=== PATIENT | male | born 1950 | race African-American/Black ===

== ENCOUNTER 2016-12-29 06:39 | Day surgery (SDC) | payer OTHER ==
[2016-12-29] VITALS (8 sets, daily range): BP systolic 130–164; BP diastolic 56–72; PULSE 65–69; RESP 16–20; TEMP 98–98.3; O2SAT 92–98
[~2016-12-29] VITALS: Ht 175.3 cm; Wt 107.0 kg
[2016-12-29] MEDS ORDERED: ASPI1TAB69 PO (07:04)
[2016-12-29] MEDS ORDERED: FERR1TAB36 PO (07:05)
[2016-12-29] MEDS ORDERED: MULT-65 PO (07:06)
[2016-12-29] MEDS ORDERED: CALC0.5C6 PO (07:06)
[2016-12-29] MEDS ORDERED: ALBI1INJ2 SQ (07:09)
[2016-12-29] MEDS ORDERED: ASPI325T PO (07:10)
[2016-12-29] MEDS ORDERED: LOSA100T PO (07:10)
[2016-12-29] MEDS ORDERED: LOVA20TA PO (07:11)
[2016-12-29] MEDS ORDERED: METO100T PO (07:11)
[2016-12-29] MEDS ORDERED: GLIP10TA6 PO (07:12)
[2016-12-29] MEDS ORDERED: CIAL20TA PO (07:12)
[2016-12-29] MEDS ORDERED: SODIUM BICARB 8.4% (PED) INJ 10 MEQ/10 ML SYR ONE (07:46)
[2016-12-29] MEDS ORDERED: LIDOCAINE 1%/EPINEPHrine 1:100,000 SOLN 20 ML VIAL ONE (07:46)
[2016-12-29] MEDS ORDERED: GELATIN 12 MM/7 MM FOAM ONE (08:00)
[2016-12-29] MEDS ORDERED: MIDAZOLAM HCL 5 MG/5 ML VIAL ONE (08:01)
[2016-12-29] MEDS ORDERED: fentaNYL CITRATE 250 MCG/5 ML AMP ONE (08:01)
[2016-12-29] MEDS ORDERED: THROMBIN (TOPICAL) 5,000 UNIT VIAL ONE (08:02)
[2016-12-29 10:23] LABS: AUTOMATED NEUTROPHIL # 4.4 TH/MM3 (1.8-7.7); BASOPHIL % 0.7 % (0.0-2.0); EOSINOPHIL # 0.2 TH/MM3 (0-0.4); EOSINOPHIL % 3.6 % (0.0-4.0); HEMATOCRIT 25.2 % (39.0-51.0); HEMO FLAGS DIFF FINAL; LYMPH % 14.2 % (9.0-44.0); LYMPHOCYTE # 0.9 TH/MM3 (1.0-4.8); MEAN CELL VOLUME 87.4 FL (80.0-100.0); MEAN CORPUSCULAR HEMOGLOBIN 27.7 PG (27.0-34.0); MEAN CORPUSCULAR HGB CONC 31.7 % (32.0-36.0); MONO % 14.5 % (0.0-8.0); PLATELET COUNT 199 TH/MM3 (150-450); RED BLOOD COUNT 2.88 MIL/MM3 (4.50-5.90); RED CELL DISTRIBUTION WIDTH 13.9 % (11.6-17.2); WHITE BLOOD COUNT 6.6 TH/MM3 (4.0-11.0)
[2016-12-29 12:40] LABS: AUTOMATED NEUTROPHIL # 4.3 TH/MM3 (1.8-7.7); BASOPHIL % 0.7 % (0.0-2.0); EOSINOPHIL # 0.3 TH/MM3 (0-0.4); EOSINOPHIL % 4.6 % (0.0-4.0); HEMATOCRIT 23.6 % (39.0-51.0); HEMO FLAGS DIFF FINAL; LYMPH % 14.9 % (9.0-44.0); LYMPHOCYTE # 0.9 TH/MM3 (1.0-4.8); MEAN CELL VOLUME 85.9 FL (80.0-100.0); MEAN CORPUSCULAR HEMOGLOBIN 28.6 PG (27.0-34.0); MEAN CORPUSCULAR HGB CONC 33.3 % (32.0-36.0); MONO % 10.4 % (0.0-8.0); NEUT % 69.4 % (16.0-70.0); PLATELET COUNT 194 TH/MM3 (150-450); RED BLOOD COUNT 2.75 MIL/MM3 (4.50-5.90); RED CELL DISTRIBUTION WIDTH 13.5 % (11.6-17.2); WHITE BLOOD COUNT 6.2 TH/MM3 (4.0-11.0)
--- NOTE | 2016-12-29 16:37 | RADRPT ---
EXAM DATE/TIME: 12/29/2016 08:09 [facility] COMPARISON: No previous studies available for comparison. INDICATIONS : Chronic kidney disease. SEDATION TIME: 15 minutes BIOPSY SITE: Right flank MEDICATION(S): 1.) 2 mg midazolam (Versed) IV 2.) 100 mcg fentanyl (Sublimaze) IV DEVICE(S): 1.) 16 gauge Patel blunt needle 10cm 2.) 18 gauge Temno core biopsy needle 15cm MEDICAL HISTORY : Hypertension. Diabetes, proteinuria, chronic kidney disease SURGICAL HISTORY : None. ENCOUNTER: Initial ACUITY: 1 day PAIN SCORE: 0/10 LOCATION: Right flank A total of one core specimen(s) were obtained and sent to the laboratory for pathologic evaluation. PROCEDURE: 1. CT guided renal biopsy. 2. Conscious sedation with continuous EKG and oximetry monitoring. Prior to the procedure informed consent was obtained. Any appropriate prior imaging studies were rev iewed. Using automated exposure control and adjustment of the mA and/or kV according to patient size, radiat ion dose was kept as low as reasonably achievable to obtain optimal diagnostic quality images. The site was prepped in a sterile fashion. Full sterile technique was used, including cap, mask, hayder rile gloves and gown and a large sterile sheet. Hand hygiene and 2% chlorhexidine and/or betadine/al cohol prep was utilized per protocol for cutaneous antisepsis. The skin and subcutaneous tissues wer e infiltrated with local anesthetic solution. With CT guidance the previously identified target was localized. Biopsy was performed using the presc ribed needle as above. Adequate hemostasis was obtained with compression at the puncture site. The track was embolized with Gelfoam and thrombin. Follow-up CT scan reveals no hemorrhage. The patient tolerated the procedure well and there were no complications. The patient was returned to the Radiology Outpatient Unit in stable condition. CONCLUSION: Uncomplicated CT guided biopsy. Hernando Bingham MD FACR on December 29, 2016 at 14:17 Board Certified Radiologist. This report was verified electronically.
== END 2016-12-29 14:30 | disposition home or self-care (01) ==
LOC: HRAD 06:39 → HRIP 06:40 → HRAD 14:30
PROVIDERS: ATTEND Internal Medicine Nephrology
DX: I12.9 Hypertensive chronic kidney disease with stage 1 through stage 4 chronic kidney disease, or unspecified chronic kidney disease (principal); N26.9 Renal sclerosis, unspecified; N18.9 Chronic kidney disease, unspecified; E11.22 Type 2 diabetes mellitus with diabetic chronic kidney disease; D64.9 Anemia, unspecified
CPT/HCPCS: 50200; 77012; 85025; J2250; J3010

== ENCOUNTER 2017-03-02 10:32 | Inpatient (IN) | payer OTHER ==
[~2017-03-02] VITALS: Ht 175.3 cm; Wt 104.9 kg
[2017-03-02] VITALS (8 sets, daily range): BP systolic 148–225; BP diastolic 67–95; PULSE 64–76; RESP 16–20; TEMP 97.5–98.6; O2SAT 97–100
[~2017-03-02 10:32] MED LIST: ALBI1INJ2 SQ; ASPI1TAB69 PO; ASPI325T PO; CALC0.5C6 PO; CIAL20TA PO; FERR1TAB36 PO; GLIP10TA6 PO; LOSA100T PO; LOVA20TA PO; METO100T PO; MULT-65 PO
--- NOTE | 2017-03-02 10:43 | PD ---
HPI Chief Complaint: Abnormal Results Time Seen by Provider: 10:42 Travel History International Travel<30 days: No Contact w/Intl Traveler<30days: No Traveled to known affect area: No History of Present Illness HPI 66-year-old male came to the emergency room with history of abnormal blood test that was ordered by his house coordinator Dr. Jaime. Concern was his hemoglobin which was 6.8. Patient sees the house coordinator for chronic renal failure. He had ordered the blood test. Patient says he does have history of anemia and takes iron but has never received blood transfusion. Denies any GI bleeding history. He says he has been feeling little weaker than usual but nothing out of the ordinary. Patient is not a dialysis patient. Patient was hypertensive upon arrival. [facility] Past Medical History Narrative Medical List of his past medical, surgical, social and family history reviewed from the nursing note. Cancer: No Cardiovascular Problems: Yes Diabetes: Yes Endocrine: Yes Hepatitis: No Hiatal Hernia: No Immune Disorder: No Musculoskeletal: No Neurologic: No Psychiatric: No Reproductive: No Respiratory: No Immunizations Current: Yes Thyroid Disease: No Past Surgical History Abdominal Surgery: Yes (gall blader removed ombilical hernia repair) AICD: No Cardiac Surgery: No Ear Surgery: No Endocrine Surgery: No Eye Surgery: No Genitourinary Surgery: No Joint Replacement: No Oral Surgery: No Pacemaker: No Thoracic Surgery: No Social History Tobacco Use: No Substance Use: No Allergies-Medications (Allergen,Severity, Reaction): Coded Allergies: No Known Allergies (Verified , 03/02/17) Comments No known drug allergies. Reported Meds & Prescriptions Reported Meds & Active Scripts Active Reported Vitamin C (Ascorbic Acid) 250 Mg Tab 500 Mg PO DAILY Nifedipine ER 24 HR (Nifedipine) 30 Mg Tab 30 Mg PO DAILY Vitamin E (Vitamin E Acetate) 400 Unit Capsule 1 Tab PO DAILY Tanzeum 4-Pack Inj (Albiglutide) 50 Mg Pfpen 50 Mg SQ Q7D Cyclosporine 25 Mg Cap Unknown Dose PO BID Prednisone 20 Mg Tab 20 Mg PO BID Aspirin Children's (Aspirin) 81 Mg Chew 81 Mg CHEW DAILY Feosol (Ferrous Sulfate) 200 Mg Tab 325 Mg PO DAILY Glipizide 10 Mg Tab 10 Mg PO BIDAC Take 30 minutes before a meal Cialis (Tadalafil) 20 Mg Tab 20 Mg PO DAILY PRN Do not exceed 1 dose/day. Lovastatin 20 Mg Tab 20 Mg PO DAILY Metoprolol Tartrate 100 Mg Tab 100 Mg PO DAILY Losartan (Losartan Potassium) 100 Mg Tab 100 Mg PO DAILY Tanzeum 4-Pack Inj (Albiglutide) 50 Mg Pfpen 50 Mg SQ Q7D Calcitriol 0.5 Mcg Cap 0.5 Mcg PO DAILY Multi-Vitamin Daily (Multiple Vitamin) 1 Tab Tab 1 Tab PO DAILY Narrative Medication List of his home medications reviewed from the nursing note. Review of Systems Except as stated in HPI: all other systems reviewed are Neg Physical Exam Narrative GENERAL: Awake, alert, obese, no obvious distress SKIN: Focused skin assessment warm/dry. Pale HEAD: Atraumatic. Normocephalic. EYES: Pupils equal and round. No scleral icterus. No injection or drainage. Pallor ENT: No nasal bleeding or discharge. Mucous membranes pink and moist. NECK: Trachea midline. No JVD. CARDIOVASCULAR: Regular rate and rhythm. No murmur appreciated. RESPIRATORY: No accessory muscle use. Clear to auscultation. Breath sounds equal bilaterally. GASTROINTESTINAL: Abdomen soft, non-tender, nondistended. Hepatic and splenic margins not palpable. MUSCULOSKELETAL: No obvious deformities. No clubbing. No cyanosis. No edema. NEUROLOGICAL: Awake and alert. No obvious cranial nerve deficits. Motor grossly within normal limits. Normal speech. PSYCHIATRIC: Appropriate mood and affect; insight and judgment normal. Data Data Last Documented VS Vital Signs Date Time Temp Pulse Resp B/P Pulse Ox O2 Delivery O2 Flow Rate FiO2 03/02/17 12:20 68 17 180/85 98 Room Air 03/02/17 10:34 98.6 Orders Complete Blood Count With Diff (03/02/17 10:36) Basic Metabolic Panel (Bmp) (03/02/17 10:36) Type And Screen (03/02/17 10:36) Prothrombin Time / Inr (Pt) (03/02/17 10:51) Red Blood Cells (Rbc) (03/02/17 11:54) Blood Product Administration .UPON TRANSFUSION (03/02/17 11:54) Sodium Chlor 0.9% 250 Ml Inj (Ns 250 Ml (03/02/17 12:00) Consult Nephrology (03/02/17 ) Clonidine (Catapres) (03/02/17 12:30) Admit Order (Ed Use Only) (03/02/17 12:30) Labs Laboratory Tests Test 03/02/17 03/02/17 10:55 11:54 White Blood Count 14.4 TH/MM3 Red Blood Count 2.54 MIL/MM3 Hemoglobin 7.0 GM/DL Hematocrit 22.9 % Mean Corpuscular Volume 90.2 FL Mean Corpuscular Hemoglobin 27.8 PG Mean Corpuscular Hemoglobin 30.8 % Concent Red Cell Distribution Width 15.2 % Platelet Count 225 TH/MM3 Mean Platelet Volume 7.6 FL Neutrophils (%) (Auto) 90.0 % Lymphocytes (%) (Auto) 4.1 % Monocytes (%) (Auto) 5.8 % Eosinophils (%) (Auto) 0.0 % Basophils (%) (Auto) 0.1 % Neutrophils # (Auto) 12.9 TH/MM3 Lymphocytes # (Auto) 0.6 TH/MM3 Monocytes # (Auto) 0.8 TH/MM3 Eosinophils # (Auto) 0.0 TH/MM3 Basophils # (Auto) 0.0 TH/MM3 CBC Comment DIFF FINAL Differential Comment Prothrombin Time 10.5 SEC Prothromb Time International 1.0 RATIO Ratio Sodium Level 141 MEQ/L Potassium Level 5.1 MEQ/L Chloride Level 112 MEQ/L Carbon Dioxide Level 19.3 MEQ/L Anion Gap 10 MEQ/L Blood Urea Nitrogen 49 MG/DL Creatinine 4.15 MG/DL Estimat Glomerular Filtration 18 ML/MIN Rate Random Glucose 156 MG/DL Calcium Level 8.6 MG/DL Blood Type A POSITIVE Antibody Screen NEGATIVE Blood Bank Comment Crossmatch Leukocyte-Reduced Red Blood Cells MDM Medical Decision Making Medical Screen Exam Complete: Yes Emergency Medical Condition: Yes Medical Record Reviewed: Yes Differential Diagnosis Acute renal failure, symptomatic anemia, anemia of chronic kidney disease Narrative Course 12:22 PM blood test results are back and hemoglobin is indeed low. I've ordered 2 units of PRBC transfusion. Patient's renal function has worsened since the last one. I discussed the case with Dr. Jaime. He wants the patient to be admitted to Dr. Burns under the medical service and he will consult on the patient. Awaiting for the hospitalist to call back. I have ordered by mouth clonidine for this patient's blood pressure. Current blood pressure was 180 systolic. Critical Care Narrative Aggregate critical care time was 30 minutes. Time to perform other separately billable procedures was not included in the critical care time. My time did not include minutes spent treating any other patients simultaneously or on activities that did not directly contribute to the patient's treatment. The services I provided to this patient were to treat and/or prevent clinically significant deterioration that could result in: Acute renal failure, symptomatically anemia, blood transfusion I provided critical care services requiring my management, as noted below: Chart data review, documentation time, medication orders and management, vital sign assessments/reviewing monitor data, ordering and reviewing lab tests, ordering and interpreting/reviewing x-rays and diagnostic studies, care of the patient and discussion of the patient with the admitting physicians. Procedures EKG Prior to Arrival: No Physician Communication Physician Communication Dr. Jaime Diagnosis Primary Impression: Renal failure Qualified Code: N17.9 - Acute renal failure superimposed on stage 5 chronic kidney disease, not on chronic dialysis, unspecified acute renal failure type Additional Impressions: Symptomatic anemia Hypertension Qualified Code: I10 - Hypertension, unspecified type Admitting Information Admitting Physician Requests: it Dexter Honeycutt MD Mar 02, 2017 10:42
[2017-03-02] MEDS ORDERED: ASPI81CH7 CHEW (10:45)
[2017-03-02] MEDS ORDERED: FERR200T PO (10:45)
[2017-03-02 11:10] LABS: AUTOMATED NEUTROPHIL # 12.9 TH/MM3 (1.8-7.7); BASOPHIL % 0.1 % (0.0-2.0); HEMATOCRIT 22.9 % (39.0-51.0); HEMO FLAGS DIFF FINAL; LYMPH % 4.1 % (9.0-44.0); LYMPHOCYTE # 0.6 TH/MM3 (1.0-4.8); MEAN CELL VOLUME 90.2 FL (80.0-100.0); MEAN CORPUSCULAR HEMOGLOBIN 27.8 PG (27.0-34.0); MEAN CORPUSCULAR HGB CONC 30.8 % (32.0-36.0); MONO % 5.8 % (0.0-8.0); PLATELET COUNT 225 TH/MM3 (150-450); RED BLOOD COUNT 2.54 MIL/MM3 (4.50-5.90); RED CELL DISTRIBUTION WIDTH 15.2 % (11.6-17.2); WHITE BLOOD COUNT 14.4 TH/MM3 (4.0-11.0)
[2017-03-02 11:26] LABS: PROTHROMBIN TIME - PATIENT 10.5 SEC (9.8-11.6)
[2017-03-02 11:35] LABS: BICARBONATE 19.3 MEQ/L (21.0-32.0); POTASSIUM 5.1 MEQ/L (3.5-5.1)
[2017-03-02] MEDS ORDERED: SODIUM CHLOR 0.9% 250 ML INJ 250 ML IV ONE (12:00)
[2017-03-02] MEDS ORDERED: cloNIDine HCL 0.1 MG TAB PO ONE (12:30)
[2017-03-02] MEDS ORDERED: ACETAMINOPHEN 325 MG TAB PO PRN (13:00)
[2017-03-02] MEDS ORDERED: ONDANSETRON HCL 4 MG/2 ML VIAL IVP PRN (13:00)
[2017-03-02] MEDS ORDERED: SODIUM CHLORIDE 0.9% FLUSH 10 ML FLUSH IV FLUSH PRN (13:00)
[2017-03-02] MEDS ORDERED: NALOXONE HCL 0.4 MG/ML AMP IV PRN (13:00)
[2017-03-02] MEDS ORDERED: ENALAPRILAT 1.25 MG/ML VIAL IV PRN (13:00)
[2017-03-02] MEDS ORDERED: BISACODYL 10 MG SUPP RECTAL PRN (13:00)
[2017-03-02] MEDS ORDERED: GLUCAGON 1 MG/ML VIAL OTHER PRN (13:30)
[2017-03-02] MEDS ORDERED: DEXTROSE 50% IN WATER 50 ML VIAL(D50) IV PUSH PRN (13:30)
--- NOTE | 2017-03-02 13:35 | RADRPT ---
EXAM DATE/TIME: 03/02/2017 12:57 [facility] COMPARISON: No previous studies available for comparison. INDICATIONS : Short of breath, high blood pressure. MEDICAL HISTORY : Renal insufficiency. Hypertension SURGICAL HISTORY : None. ENCOUNTER: Initial ACUITY: 3 days PAIN SCORE: 0/10 LOCATION: Bilateral chest FINDINGS: A single view of the chest demonstrates the lungs to be symmetrically aerated without evidence of mas s, infiltrate or effusion. The cardiomediastinal contours are unremarkable. Osseous structures are intact. CONCLUSION: No acute disease. Rick Pinto MD on March 02, 2017 at 13:33 Board Certified Radiologist. This report was verified electronically.
[2017-03-02] MEDS ORDERED: PRED20 PO (14:05)
[2017-03-02] MEDS ORDERED: VITA-136 PO (14:05)
[2017-03-02] MEDS ORDERED: CYCL25CA4 PO (14:05)
[2017-03-02] MEDS ORDERED: ALBI1INJ2 SQ (14:05)
[2017-03-02] MEDS ORDERED: NIFE30TA61 PO (14:06)
[2017-03-02] MEDS ORDERED: VITA250T3 PO (14:06)
[2017-03-02] MEDS: INSULIN ASPART SUPPLEMENTAL SCALE SQ SCH ×2 (16:00→21:43)
[2017-03-02] MEDS ORDERED: EPOETIN ALFA 20,000 UNITS/ML VIAL SQ ONE (18:00)
--- NOTE | 2017-03-02 21:33 | HHI.HP ---
HPI Service [facility] Hospitalists Primary Care Physician Jose Stark MD Admission Diagnosis acute renal failure, symptomatic anemia Chief Complaint: sent by nephrology for low hemoglobin increase creatine Travel History International Travel<30 Days: No Contact w/Intl Traveler <30 Da: No Traveled to Known Affected Are: No History of Present Illness 66-year-old male came to the emergency room with history of abnormal blood test that was ordered by his director of student services Dr. Jaime. Concern was his hemoglobin which was 6.8. Patient sees the director of student services for chronic renal failure. He had ordered the blood test. Patient says he does have history of anemia and takes iron but has never received blood transfusion. Denies any GI bleeding history. He says he has been feeling little weaker than usual but nothing out of the ordinary. Patient is not a dialysis patient. Patient was hypertensive upon arrival. Received BP medication and will receive blood transfusion. Nephrology aware. Review of Systems Constitutional: COMPLAINS OF: Fatigue Past Family Social History Past Medical History chronic renal failure,hypertension,diabetes Past Surgical History gallbladder,umbilical surgery Reported Medications Aspirin Children's (Aspirin) 81 Mg Chew 81 Mg CHEW DAILY Feosol (Ferrous Sulfate) 200 Mg Tab 325 Mg PO DAILY Glipizide 10 Mg Tab 10 Mg PO BIDAC Take 30 minutes before a meal Cialis (Tadalafil) 20 Mg Tab 20 Mg PO DAILY PRN Do not exceed 1 dose/day. Lovastatin 20 Mg Tab 20 Mg PO DAILY Metoprolol Tartrate 100 Mg Tab 100 Mg PO DAILY Losartan (Losartan Potassium) 100 Mg Tab 100 Mg PO DAILY Tanzeum 4-Pack Inj (Albiglutide) 50 Mg Pfpen 50 Mg SQ Q7D Calcitriol 0.5 Mcg Cap 0.5 Mcg PO DAILY Multi-Vitamin Daily (Multiple Vitamin) 1 Tab Tab 1 Tab PO DAILY Allergies: Coded Allergies: No Known Allergies (Verified , 03/02/17) Social History NS,ND Physical Exam Vital Signs Vital Signs Date Time Temp Pulse Resp B/P Pulse Ox O2 Delivery O2 Flow Rate FiO2 03/02/17 20:00 98.3 74 20 169/74 98 03/02/17 16:30 97.5 76 18 168/77 98 03/02/17 15:54 97.5 67 18 161/70 97 03/02/17 15:00 98.0 64 18 148/67 97 03/02/17 13:00 76 16 180/78 98 Room Air 03/02/17 12:50 78 16 98 Room Air 03/02/17 12:40 76 17 158/72 98 Room Air 03/02/17 12:20 68 17 180/85 98 Room Air 03/02/17 10:34 98.6 70 20 225/95 100 Room Air Physical Exam GENERAL: This is a well-nourished, well-developed patient, in no apparent distress. SKIN: No rashes, ecchymoses or lesions. Cool and dry. HEAD: Atraumatic. Normocephalic. No temporal or scalp tenderness. EYES: Pupils equal round and reactive. Extraocular motions intact. No scleral icterus. No injection or drainage. ENT: Nose without bleeding, purulent drainage or septal hematoma. Throat without erythema, tonsillar hypertrophy or exudate. Uvula midline. Airway patent. NECK: Trachea midline. No JVD or lymphadenopathy. Supple, nontender, no meningeal signs. CARDIOVASCULAR: Regular rate and rhythm without murmurs, gallops, or rubs. RESPIRATORY: Clear to auscultation. Breath sounds equal bilaterally. No wheezes , rales, or rhonchi. GASTROINTESTINAL: Abdomen soft, non-tender, nondistended. No hepato-splenomegaly , or palpable masses. No guarding. MUSCULOSKELETAL: Extremities without clubbing, cyanosis, or edema. No joint tenderness, effusion, or edema noted. No calf tenderness. Negative Homans sign bilaterally. NEUROLOGICAL: Awake and alert. Cranial nerves II through XII intact. Motor and sensory grossly within normal limits. Five out of 5 muscle strength in all muscle groups. Normal speech. Laboratory Laboratory Tests Test 03/02/17 03/02/17 03/02/17 10:55 11:54 13:24 White Blood Count 14.4 Red Blood Count 2.54 Hemoglobin 7.0 Hematocrit 22.9 Mean Corpuscular Volume 90.2 Mean Corpuscular Hemoglobin 27.8 Mean Corpuscular Hemoglobin 30.8 Concent Red Cell Distribution Width 15.2 Platelet Count 225 Mean Platelet Volume 7.6 Neutrophils (%) (Auto) 90.0 Lymphocytes (%) (Auto) 4.1 Monocytes (%) (Auto) 5.8 Eosinophils (%) (Auto) 0.0 Basophils (%) (Auto) 0.1 Neutrophils # (Auto) 12.9 Lymphocytes # (Auto) 0.6 Monocytes # (Auto) 0.8 Eosinophils # (Auto) 0.0 Basophils # (Auto) 0.0 CBC Comment DIFF FINAL Differential Comment Prothrombin Time 10.5 Prothromb Time International 1.0 Ratio Sodium Level 141 Potassium Level 5.1 Chloride Level 112 Carbon Dioxide Level 19.3 Anion Gap 10 Blood Urea Nitrogen 49 Creatinine 4.15 Estimat Glomerular Filtration 18 Rate Random Glucose 156 Calcium Level 8.6 Blood Type A POSITIVE A POSITIVE Antibody Screen NEGATIVE Blood Bank Comment Crossmatch Leukocyte-Reduced Red Blood Cells Result Diagram: 03/02/17 1055 03/02/17 1055 Imaging Last 24 hours Impressions Chest X-Ray 03/02/17 1248 Signed Impressions: Service Date/Time: Thursday, March 02, 2017 12:57 - CONCLUSION: No acute disease. Rick Pinto MD Assessment and Plan Problem List: (1) Renal failure Status: Acute Plan: renal consult recheck labs (2) Symptomatic anemia Status: Acute Plan: will receive blood transfusion (3) Hypertension Status: Chronic Plan: continue home meds add clonidine prn Assessment and Plan further plan as case develops Code Status full Discussed Condition With patient Physician Certification 2 Midnight Certification Type: Admission for Inpatient Services Order for Inpatient Services The services are ordered in accordance with Medicare regulations or non- Medicare payer requirements, as applicable. In the case of services not specified as inpatient-only, they are appropriately provided as inpatient services in accordance with the 2-midnight benchmark. Estimated LOS (days): 3 3 days is the estimated time the patient will need to remain in the hospital, assuming treatment plan goals are met and no additional complications. Post-Hospital Plan: Not yet determined Problem Qualifiers (1) Renal failure: Qualified Code: N17.9 - Acute renal failure superimposed on stage 5 chronic kidney disease, not on chronic dialysis, unspecified acute renal failure type (2) Hypertension: Qualified Code: I10 - Hypertension, unspecified type Jose Stark MD Mar 02, 2017 21:33
[2017-03-02] MEDS: cycloSPORINE 25 MG CAP PO SCH (21:40)
--- NOTE | 2017-03-02 21:40 | MB ---
cc: TALIA BARRETT MD DATE OF CONSULTATION 03/02/2017 REASON FOR CONSULTATION Chronic kidney disease and advanced renal failure for evaluation. HISTORY OF PRESENT ILLNESS This is a 66-year-old male with past medical history of hypertension, diabetes mellitus, chronic anemia, chronic kidney disease, hyperlipidemia who was called to go to the hospital because of very low hemoglobin and hyperkalemia. I was called to see the patient for chronic kidney disease. I saw him yesterday in the office and the blood results showing that he has hemoglobin was 6.8 and the potassium was 6.1 and I asked him to go to the emergency department and he decided to come today. 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 The patient was started on prednisone and cyclosporin. So far there is not much improvement in the renal function and the creatinine has gone up to 4.1, it was 3.3 and the creatinine has been going up relatively faster and that was the reason that the kidney biopsy was done. The patient was also sent to the kidney smart class where he decided that he will go for peritoneal dialysis when needed. He does not have any nausea or vomiting. His appetite is good. There is no abdominal pain, no shortness of breath. PAST MEDICAL HISTORY 1. Hypertension. 2. Diabetes mellitus. 3. Chronic anemia. 4. Chronic kidney disease. 5. Hyperlipidemia. PAST SURGICAL HISTORY 1. Cholecystectomy. 2. Umbilical hernia repair. 3. Recent history of renal biopsy. REVIEW OF SYSTEMS There is no history of headache, dizziness or blurring of vision. He has generalized weakness. There is no nausea or vomiting. No shortness of breath. No chest pain. No palpitation. No abdominal pain. No history of diarrhea. Denies any melena or blood loss in the stool. There is no dysuria, hematuria or difficulty in passing urine. SOCIAL HISTORY The patient is . He is a retired secretary of police. There is no history of smoking or alcoholism. FAMILY HISTORY Positive for diabetes from mother's side. ALLERGIES NO KNOWN DRUG ALLERGIES. MEDICATIONS Currently he is on following medications: 1. Aspirin 81 mg daily. 2. Rocaltrol 0.5 mcg once a day. 3. Ferrous sulfate 325 mg daily. 4. Cozaar 100 mg once a day. 5. Pravachol 20 mg daily. 6. Lopressor 100 mg once a day. 7. Theragran 1 tablet daily. 8. NovoLog sliding scale. 9. Zofran as needed. 10. Narcan as needed. EXAMINATION GENERAL: The patient is awake, alert. He is not in acute distress. VITAL SIGNS: His last blood pressure is 168/77, temperature 97.5, oxygen saturation 97-98%. HEENT: Pupils equally reacting to light. Nonicteric sclera, conjunctiva pale. NECK: Supple. JVD is not elevated. LUNGS: The patient has bilateral good air entry with occasional wheezing. HEART: S1-S2, regular rhythm. ABDOMEN: Distended, soft, lax. There is no tenderness. Bowel sounds positive. EXTREMITIES: There is mild edema in the legs. LABORATORY DATA Investigations, WBC count is 14.4, hemoglobin 7.0, platelet count of 225. Sodium 141, potassium 5.1, chloride 112, bicarb 19.3, BUN 49, creatinine 4.1, GFR is 18, glucose 156. INR is 1.0. IMAGING A chest x-ray showing that lung fan are clear. ASSESSMENT/PLAN 1. Chronic kidney disease, advanced renal failure. 2. Anemia. 3. Hyperkalemia. 4. Metabolic acidosis. 5. History of hyperlipidemia. The patient has relatively fast deterioration of his renal function and that was the reason that the kidney biopsy was done in December. His creatinine has gone up now to 4.1. He has focal segmental glomerulosclerosis, also for that reason he was started on cyclosporin and prednisone. So far there is not much improvement in renal function. I will decrease the prednisone and cyclosporin dose also. Continue to follow the renal function closely. Right now he is getting the blood transfusion. There is no apparent blood loss. Most likely this is related to chronic kidney disease. I will check his iron studies and give him one dose of Epogen also. Thank you for the consultation. I will follow the patient while he is in the hospital. MD ROMÁN Aponte/FLORIAN /5:16 PM /9:21 PM
[2017-03-02] MEDS: SODIUM CHLORIDE 0.9% FLUSH 10 ML FLUSH IV FLUSH SCH (21:41)
[2017-03-02] MEDS: predniSONE 10 MG TAB PO SCH (21:41)
[2017-03-02] MEDS: cloNIDine HCL 0.2 MG TAB PO PRN (21:41)
[2017-03-03] VITALS (8 sets, daily range): BP systolic 156–221; BP diastolic 70–93; PULSE 55–74; RESP 18–19; TEMP 97.5–98.2; O2SAT 96–99
[2017-03-03] MEDS: cycloSPORINE 25 MG CAP PO SCH ×2 (05:30→17:04)
[2017-03-03] MEDS: INSULIN ASPART SUPPLEMENTAL SCALE SQ SCH ×4 (06:04→21:31)
[2017-03-03 06:21] LABS: BASOPHIL % 0.2 % (0.0-2.0); EOSINOPHIL % 0.1 % (0.0-4.0); HEMATOCRIT 24.6 % (39.0-51.0); HEMO FLAGS DIFF FINAL; LYMPH % 4.6 % (9.0-44.0); LYMPHOCYTE # 0.5 TH/MM3 (1.0-4.8); MEAN CELL VOLUME 85.6 FL (80.0-100.0); MEAN CORPUSCULAR HEMOGLOBIN 28.4 PG (27.0-34.0); MEAN CORPUSCULAR HGB CONC 33.2 % (32.0-36.0); MONO % 4.5 % (0.0-8.0); NEUT % 90.6 % (16.0-70.0); PLATELET COUNT 194 TH/MM3 (150-450); RED BLOOD COUNT 2.87 MIL/MM3 (4.50-5.90); RED CELL DISTRIBUTION WIDTH 16.9 % (11.6-17.2); WHITE BLOOD COUNT 9.9 TH/MM3 (4.0-11.0)
[2017-03-03 07:07] LABS: ANION GAP 10 MEQ/L (5-15); BICARBONATE 20.5 MEQ/L (21.0-32.0); BLOOD UREA NITROGEN 52 MG/DL (7-18); CHLORIDE 110 MEQ/L (98-107); FERRITIN 51 NG/ML (26-388); GLOMERULAR FILTRATION RATE 20 ML/MIN (>89); SODIUM (NA) 140 MEQ/L (136-145); TRANSFERRIN IRON PROFILE 213 MG/DL (200-360)
[2017-03-03 07:18] LABS: POTASSIUM 6.6 MEQ/L (3.5-5.1)
[2017-03-03] MEDS: CALCITRIOL 0.25 MCG CAP PO SCH (08:45)
[2017-03-03] MEDS: ASPIRIN 81 MG CHEW TAB CHEW SCH (08:45)
[2017-03-03] MEDS: METOPROLOL TARTRATE 100 MG TAB PO SCH (08:45)
[2017-03-03] MEDS: MULTIVITAMIN TAB PO SCH (08:46)
[2017-03-03] MEDS: LOSARTAN 50 MG TAB PO SCH (08:46)
[2017-03-03] MEDS: PRAVASTATIN SOD 20 MG TAB PO SCH (08:46)
[2017-03-03] MEDS: predniSONE 10 MG TAB PO SCH ×2 (08:46→20:39)
[2017-03-03] MEDS: SODIUM CHLORIDE 0.9% FLUSH 10 ML FLUSH IV FLUSH SCH ×2 (08:46→20:40)
[2017-03-03] MEDS: FERROUS SULFATE 325 MG (65 MG ELEMENTAL IRON) TAB PO SCH (08:46)
[2017-03-03] MEDS ORDERED: SODIUM BICARBONATE 8.4% INJ 50 MEQ/50 ML SYR IV ONE (09:00)
[2017-03-03] MEDS ORDERED: SODIUM POLYSTYRENE SULFONATE SUSP 15 GM/60 ML CUP PO ONE ×3 (09:00→11:00)
[2017-03-03] MEDS: cloNIDine HCL 0.2 MG TAB PO PRN (10:29)
[2017-03-03] MEDS ORDERED: LABETALOL HCL 100 MG/20 ML VIAL IV PRN (11:45)
--- NOTE | 2017-03-03 12:49 | HHI.NPPN ---
Subjective History of Present Illness 66-year-old male with past medical history of hypertension, diabetes mellitus, chronic anemia, chronic kidney disease, hyperlipidemia who was called to go to the hospital because of very low hemoglobin and hyperkalemia. I was called to see the patient for chronic kidney disease. Additional Remarks Patient is alert, has loose BM after Kayexalate. Review of Systems General Constitutional: Fatigue Cardiovascular Cardiac: CHASE Objective Data Data 03/02/17 03/03/17 19:00 07:00 Intake Total 720 ml Output Total 1550 ml Balance -830 ml Intake Oral 720 ml Output Urine Total 1550 ml Vital Signs Date Time Temp Pulse Resp B/P Pulse Ox O2 Delivery O2 Flow Rate FiO2 03/03/17 12:00 97.5 69 18 221/93 98 03/03/17 08:00 97.9 67 18 198/86 98 03/03/17 04:00 98.2 56 19 196/77 98 160/80 03/03/17 00:00 98.2 67 19 156/72 96 03/02/17 20:00 98.3 74 20 169/74 98 03/02/17 20:00 75 03/02/17 20:00 98.3 74 20 169/74 98 03/02/17 16:30 97.5 76 18 168/77 98 03/02/17 15:54 97.5 67 18 161/70 97 03/02/17 15:00 98.0 64 18 148/67 97 03/02/17 13:00 76 16 180/78 98 Room Air 03/02/17 12:50 78 16 98 Room Air -: 03/03/17 0531 03/03/17 0531 Physical Exam General Appearance: No Acute Distress, Comfortable Eyes Eye Exam: Pupils Equal Throat Throat Exam: Oral Mucosa [place] & Moist Neck Neck Exam: Neck Supple Pulmonary Resp Exam: Clear Bilaterally, Breath Sounds Equal, No Distress, Decreased Bases Cardiology CV Exam: Regular, Normal Sinus Rhythm Gastrointestinal/Abdomen GI Exam: Soft, Non-Tender, Bowel Sounds Present Extremeties Extremities Exam: Trace Edema Neurologic Neuro Exam: Alert, Awake, Oriented Psychiatric Psych Exam: Appropriate Responses Assessment/Plan Assessment Summary: Anemia of CKD, Hypertension, CKD Stage IV Electrolyte Assessment: Hyperkalemia Problem List: (1) Hypertension (2) Symptomatic anemia (3) Hyperkalemia (4) Stage 4 chronic kidney disease Plan Patient has improvement in the Creatinine. K was elevated, given Kayexalate and NaHco3, told to restrict K in diet. Change diet to low K. Decrease Cyclosporine. Add Hydralazine. Problem Qualifiers (1) Hypertension: Qualified Code: I10 - Hypertension, unspecified type Chuy Jaime MD Mar 03, 2017 12:49
[2017-03-03] MEDS: hydrALAZINE HCL 20 MG/ML VIAL IV PUSH PRN (13:37)
[2017-03-03] MEDS: hydrALAZINE HCL 25 MG TAB PO SCH ×2 (14:25→20:40)
--- NOTE | 2017-03-03 15:03 | HHI.PR ---
Subjective Remarks No new complaints. Objective Vitals Vital Signs Date Time Temp Pulse Resp B/P Pulse Ox O2 Delivery O2 Flow Rate FiO2 03/03/17 14:23 72 177/77 03/03/17 12:00 97.5 69 18 221/93 98 03/03/17 08:00 97.9 67 18 198/86 98 03/03/17 04:00 98.2 56 19 196/77 98 160/80 03/03/17 00:00 98.2 67 19 156/72 96 03/02/17 20:00 98.3 74 20 169/74 98 03/02/17 20:00 75 03/02/17 20:00 98.3 74 20 169/74 98 03/02/17 16:30 97.5 76 18 168/77 98 03/02/17 15:54 97.5 67 18 161/70 97 03/02/17 03/02/17 03/03/17 14:59 22:59 06:59 Intake Total 240 ml 480 ml Output Total 750 ml 800 ml Balance -510 ml -320 ml Intake Oral 240 ml 480 ml Output Urine Total 750 ml 800 ml Result Diagram: 03/03/17 0531 03/03/17 0531 Imaging Last 24 hours Impressions Chest X-Ray 03/02/17 1248 Signed Impressions: Service Date/Time: Thursday, March 02, 2017 12:57 - CONCLUSION: No acute disease. Rick Pinto MD Objective Remarks GENERAL: This is a well-nourished, well-developed patient, in no apparent distress. CARDIOVASCULAR: Regular rate and rhythm without murmurs, gallops, or rubs. RESPIRATORY: Clear to auscultation. Breath sounds equal bilaterally. No wheezes , rales, or rhonchi. GASTROINTESTINAL: Abdomen soft, non-tender, nondistended. Normal active bowel sounds MUSCULOSKELETAL: Extremities without clubbing, cyanosis, or edema. NEURO: Alert & Oriented x4 to person, place, time, situation. Moves all ext x4 A/P Problem List: (1) Renal failure Status: Acute Plan: - comgmt with Nephrology, Dr. Jaime - Case d/w Dr. Jaime (03/04/17) - kidney biopsy showed focal segmental glomerulosclerosis - pt receiving cyclosporin and prednisone with minimal improvement to date - decrease dose adjustments of pt's cyclosporin and prednisone per Nephrology - (2) Hypertension Status: Chronic Plan: - need improved control prior to discharge - increase scheduled hydralazine to 50mg TID - heath myers - trial of cardizem CD 120mg BID - hydralazine prn - observe (3) Symptomatic anemia Status: Acute Plan: - d/t RF - Pt received transfusion of 2 units PRBCs - Hg 7.0 (03/02/17), 8.2 (03/03/17) - Epogen (03/02/17) - repeat CBC in AM Problem Qualifiers (1) Renal failure: Qualified Code: N17.9 - Acute renal failure superimposed on stage 5 chronic kidney disease, not on chronic dialysis, unspecified acute renal failure type (2) Hypertension: Qualified Code: I10 - Hypertension, unspecified type Robson Burns DO Mar 03, 2017 15:03
--- NOTE | 2017-03-03 15:14 | EKG ---
Date Performed: 03/02/2017 Time Performed: 14:22:55 PTAGE: 66 years EKG: Sinus rhythm LEFT VENTRICULAR HYPERTROPHY AND ST-T CHANGE Inverted inferolateral T waves, potentially due to LVH vs ischemia Clinical correlation is recommended ABNORMAL ECG PREVIOUS TRACING : 04/20/2001 22.53 DOCTOR: Salome Brown Interpretating Date/Time 03/03/2017 15:13:12
[2017-03-03] MEDS: DILTIAZEM-CD 120 MG CAP ER PO SCH ×2 (17:02→20:40)
[2017-03-04] VITALS (9 sets, daily range): BP systolic 137–190; BP diastolic 59–78; PULSE 58–72; RESP 18–58; TEMP 97.4–98.2; O2SAT 95–99
[2017-03-04] MEDS: hydrALAZINE HCL 20 MG/ML VIAL IV PUSH PRN ×2 (04:06→12:02)
[2017-03-04] MEDS: cycloSPORINE 25 MG CAP PO SCH ×2 (05:27→17:44)
[2017-03-04] MEDS: hydrALAZINE HCL 25 MG TAB PO SCH ×3 (05:27→21:14)
[2017-03-04] MEDS: INSULIN ASPART SUPPLEMENTAL SCALE SQ SCH ×4 (05:30→21:12)
[2017-03-04] MEDS: predniSONE 10 MG TAB PO SCH ×2 (08:42→21:14)
[2017-03-04] MEDS: PRAVASTATIN SOD 20 MG TAB PO SCH (08:42)
[2017-03-04] MEDS: METOPROLOL TARTRATE 100 MG TAB PO SCH (08:42)
[2017-03-04] MEDS: MULTIVITAMIN TAB PO SCH (08:42)
[2017-03-04] MEDS: SODIUM CHLORIDE 0.9% FLUSH 10 ML FLUSH IV FLUSH SCH ×2 (08:42→21:00)
[2017-03-04] MEDS: DILTIAZEM-CD 120 MG CAP ER PO SCH ×2 (08:42→21:13)
[2017-03-04] MEDS: FERROUS SULFATE 325 MG (65 MG ELEMENTAL IRON) TAB PO SCH (08:42)
[2017-03-04] MEDS: ASPIRIN 81 MG CHEW TAB CHEW SCH (08:42)
[2017-03-04] MEDS: CALCITRIOL 0.25 MCG CAP PO SCH (08:42)
[2017-03-04] MEDS: LOSARTAN 50 MG TAB PO SCH (08:42)
[2017-03-04] MEDS: cloNIDine HCL 0.2 MG TAB PO PRN (10:42)
--- NOTE | 2017-03-04 10:45 | HHI.NPPN ---
Subjective History of Present Illness 66-year-old male with past medical history of hypertension, diabetes mellitus, chronic anemia, chronic kidney disease, hyperlipidemia who was called to go to the hospital because of very low hemoglobin and hyperkalemia. I was called to see the patient for chronic kidney disease. Additional Remarks Patient is alert, no SOB, feeling better. Review of Systems General Constitutional: Fatigue Cardiovascular Cardiac: CHASE Objective Data Data 03/03/17 03/04/17 18:59 06:59 Intake Total 720 ml 724 ml Output Total 200 ml 900 ml Balance 520 ml -176 ml Intake Oral 720 ml 720 ml IV Total 4 ml Output Urine Total 200 ml 900 ml # Bowel Movements 0 Vital Signs Date Time Temp Pulse Resp B/P Pulse Ox O2 Delivery O2 Flow Rate FiO2 03/04/17 04:00 98.2 64 18 190/60 03/04/17 04:00 Room Air 03/04/17 00:00 98.2 72 19 180/60 98 03/04/17 00:00 Room Air 03/03/17 20:19 74 03/03/17 20:00 Room Air 03/03/17 20:00 98.2 71 19 216/88 98 198/80 03/03/17 16:00 97.8 74 18 163/70 99 03/03/17 14:23 72 177/77 03/03/17 12:00 97.5 69 18 221/93 98 -: 03/03/17 0531 03/03/17 1600 Physical Exam General Appearance: No Acute Distress, Comfortable Eyes Eye Exam: Pupils Equal Throat Throat Exam: Oral Mucosa [place] & Moist Neck Neck Exam: Neck Supple Pulmonary Resp Exam: Clear Bilaterally, Breath Sounds Equal, No Distress, Decreased Bases Cardiology CV Exam: Regular, Normal Sinus Rhythm Gastrointestinal/Abdomen GI Exam: Soft, Non-Tender, Bowel Sounds Present Extremeties Extremities Exam: Trace Edema Neurologic Neuro Exam: Alert, Awake, Oriented Psychiatric Psych Exam: Appropriate Responses Assessment/Plan Assessment Summary: Anemia of CKD, Hypertension, CKD Stage IV Electrolyte Assessment: Hyperkalemia Problem List: (1) Hypertension (2) Symptomatic anemia (3) Hyperkalemia (4) Stage 4 chronic kidney disease Plan BP is still elevated off and on. Also started on Diltiazem. Hgb. was stable, got one dose of Epogen. Iron study is normal, and Po4 is also normal. Possible D/C once BP is better. Told to restrict K in diet. Problem Qualifiers (1) Hypertension: Qualified Code: I10 - Hypertension, unspecified type Chuy Jaime MD Mar 04, 2017 10:45
[2017-03-04] MEDS ORDERED: hydrALAZINE HCL 50 MG TAB PO ONE (15:45)
[2017-03-05] VITALS (9 sets, daily range): BP systolic 146–183; BP diastolic 62–78; PULSE 58–80; RESP 16–18; TEMP 97.3–98.1; O2SAT 96–100
[2017-03-05 05:36] LABS: AUTOMATED NEUTROPHIL # 11.1 TH/MM3 (1.8-7.7); BASOPHIL % 0.2 % (0.0-2.0); EOSINOPHIL % 0.3 % (0.0-4.0); HEMATOCRIT 27.7 % (39.0-51.0); LYMPHOCYTE # 0.6 TH/MM3 (1.0-4.8); MEAN CELL VOLUME 87.2 FL (80.0-100.0); MEAN CORPUSCULAR HEMOGLOBIN 27.6 PG (27.0-34.0); MEAN CORPUSCULAR HGB CONC 31.7 % (32.0-36.0); MONO % 6.7 % (0.0-8.0); NEUT % 87.8 % (16.0-70.0); PLATELET COUNT 215 TH/MM3 (150-450); RED BLOOD COUNT 3.17 MIL/MM3 (4.50-5.90); RED CELL DISTRIBUTION WIDTH 16.7 % (11.6-17.2); WHITE BLOOD COUNT 12.6 TH/MM3 (4.0-11.0)
[2017-03-05] MEDS: cycloSPORINE 25 MG CAP PO SCH ×2 (05:44→17:08)
[2017-03-05] MEDS: hydrALAZINE HCL 25 MG TAB PO SCH ×3 (05:44→20:41)
[2017-03-05 05:51] LABS: HEMO FLAGS AUTO DIFF
[2017-03-05] MEDS: INSULIN ASPART SUPPLEMENTAL SCALE SQ SCH ×4 (05:54→20:43)
[2017-03-05 06:11] LABS: BICARBONATE 20.9 MEQ/L (21.0-32.0); MAGNESIUM 2.1 MG/DL (1.5-2.5); POTASSIUM 4.8 MEQ/L (3.5-5.1)
[2017-03-05] MEDS: FERROUS SULFATE 325 MG (65 MG ELEMENTAL IRON) TAB PO SCH (08:08)
[2017-03-05] MEDS: predniSONE 10 MG TAB PO SCH ×2 (08:09→20:41)
[2017-03-05] MEDS: LOSARTAN 50 MG TAB PO SCH (08:09)
[2017-03-05] MEDS: CALCITRIOL 0.25 MCG CAP PO SCH (08:09)
[2017-03-05] MEDS: METOPROLOL TARTRATE 100 MG TAB PO SCH (08:09)
[2017-03-05] MEDS: ASPIRIN 81 MG CHEW TAB CHEW SCH (08:09)
[2017-03-05] MEDS: PRAVASTATIN SOD 20 MG TAB PO SCH (08:09)
[2017-03-05] MEDS: MULTIVITAMIN TAB PO SCH (08:09)
[2017-03-05] MEDS: SODIUM CHLORIDE 0.9% FLUSH 10 ML FLUSH IV FLUSH SCH ×2 (08:09→20:40)
[2017-03-05] MEDS: DILTIAZEM-CD 120 MG CAP ER PO SCH ×2 (08:09→20:41)
[2017-03-05 11:13] LABS: BANDS 3 % (0-6); CORRECTED NUCLEATED RBC 1 /100 WBC (0-0); MYELOCYTES 1 % (0-0); NEUTROPHIL # MANUAL DIFF 11.2 TH/MM3 (1.8-7.7); PLATELET ESTIMATE SMEAR NORMAL (NORMAL); PLATELET MORPHOLOGY NORMAL (NORMAL); POLYCHROMASIA 2.2 % (0.0-1.9); POLYS (SEG NEUTROPHILS) 85 % (16-70); WBC DIFF SAMPLE 100
[2017-03-05 11:14] LABS: SCAN/DIFF FINAL DIFF MANUAL
[2017-03-05] MEDS: hydrALAZINE HCL 20 MG/ML VIAL IV PUSH PRN ×2 (11:38→17:08)
--- NOTE | 2017-03-05 12:37 | HHI.PR ---
Subjective Remarks may be getting depressed. sullen not getting out of bed much. Objective Vitals Vital Signs Date Time Temp Pulse Resp B/P Pulse Ox O2 Delivery O2 Flow Rate FiO2 03/05/17 11:54 80 183/78 03/05/17 08:05 62 03/05/17 04:00 98.1 60 18 164/62 97 03/05/17 00:00 98.1 64 18 160/64 97 03/05/17 00:00 Room Air 03/04/17 20:00 Room Air 03/04/17 20:00 98.1 61 18 172/60 98 03/04/17 19:55 65 03/04/17 16:06 97.6 62 20 151/59 98 03/04/17 03/04/17 03/05/17 14:59 22:59 06:59 Intake Total 480 ml 2 ml Output Total 800 ml 450 ml Balance -320 ml 2 ml -450 ml Intake Oral 480 ml IV Total 2 ml Output Urine Total 800 ml 450 ml # Bowel Movements 0 Result Diagram: 03/05/17 0418 03/05/17 0418 Imaging Last 24 hours Impressions Chest X-Ray 03/02/17 1248 Signed Impressions: Service Date/Time: Thursday, March 02, 2017 12:57 - CONCLUSION: No acute disease. Rick Pinto MD Objective Remarks GENERAL: This is a well-nourished, well-developed patient, in no apparent distress. CARDIOVASCULAR: Regular rate and rhythm without murmurs, gallops, or rubs. RESPIRATORY: Clear to auscultation. Breath sounds equal bilaterally. No wheezes , rales, or rhonchi. GASTROINTESTINAL: Abdomen soft, non-tender, nondistended. Normal active bowel sounds MUSCULOSKELETAL: Extremities without clubbing, cyanosis, or edema. NEURO: Alert & Oriented x4 to person, place, time, situation. Moves all ext x4 A/P Problem List: (1) Renal failure Status: Acute Plan: - comgmt with Nephrology, Dr. Jaime - Case d/w Dr. Jaime (03/05/17) - kidney biopsy showed focal segmental glomerulosclerosis - pt receiving cyclosporin and prednisone with minimal improvement to date - decrease dose adjustments of pt's cyclosporin and prednisone per Nephrology (2) Hypertension Status: Chronic Plan: - need improved control prior to discharge - increased scheduled hydralazine to 50mg TID (increased 03/04/17) - if still NO improvement in BP readings by tomorrow 03/06 then will increase hydralazine to 75mg TID - heath myers - trial of cardizem CD 120mg BID (started 03/03/17) - hydralazine prn - observe (3) Symptomatic anemia Status: Acute Plan: - d/t RF - Pt received transfusion of 2 units PRBCs - Hg 7.0 (03/02/17), 8.2 (03/03/17), 8.8 (03/04/17) - Epogen (03/02/17) - repeat CBC in AM (4) Adjustment disorder Status: Acute Plan: - case d/w nursing - encourage OOB and ambulate in the hallways - may need to start anti-depressant - observe Problem Qualifiers (1) Renal failure: Qualified Code: N17.9 - Acute renal failure superimposed on stage 5 chronic kidney disease, not on chronic dialysis, unspecified acute renal failure type (2) Hypertension: Qualified Code: I10 - Hypertension, unspecified type Robson Burns DO Mar 05, 2017 12:37
--- NOTE | 2017-03-05 14:23 | HHI.NPPN ---
Subjective History of Present Illness 66-year-old male with past medical history of hypertension, diabetes mellitus, chronic anemia, chronic kidney disease, hyperlipidemia who was called to go to the hospital because of very low hemoglobin and hyperkalemia. I was called to see the patient for chronic kidney disease. Additional Remarks Patient is alert, no complain, feeling better. Review of Systems General Constitutional: Fatigue Cardiovascular Cardiac: CHASE Objective Data Data 03/04/17 03/05/17 18:59 06:59 Intake Total 480 ml 2 ml Output Total 800 ml 450 ml Balance -320 ml -448 ml Intake Oral 480 ml IV Total 2 ml Output Urine Total 800 ml 450 ml # Bowel Movements 0 Vital Signs Date Time Temp Pulse Resp B/P Pulse Ox O2 Delivery O2 Flow Rate FiO2 03/05/17 11:54 80 183/78 03/05/17 08:05 62 03/05/17 08:00 97.9 70 18 167/72 99 03/05/17 04:00 98.1 60 18 164/62 97 03/05/17 00:00 98.1 64 18 160/64 97 03/05/17 00:00 Room Air 03/04/17 20:00 Room Air 03/04/17 20:00 98.1 61 18 172/60 98 03/04/17 19:55 65 03/04/17 16:06 97.6 62 20 151/59 98 -: 03/05/17 0418 03/05/17 0418 Physical Exam General Appearance: No Acute Distress, Comfortable Eyes Eye Exam: Pupils Equal Throat Throat Exam: Oral Mucosa [place] & Moist Neck Neck Exam: Neck Supple Pulmonary Resp Exam: Clear Bilaterally, Breath Sounds Equal, No Distress, Decreased Bases Cardiology CV Exam: Regular, Normal Sinus Rhythm Gastrointestinal/Abdomen GI Exam: Soft, Non-Tender, Bowel Sounds Present Extremeties Extremities Exam: Trace Edema Neurologic Neuro Exam: Alert, Awake, Oriented Psychiatric Psych Exam: Appropriate Responses Assessment/Plan Assessment Summary: Anemia of CKD, Hypertension, CKD Stage IV Electrolyte Assessment: Hyperkalemia Problem List: (1) Hypertension (2) Symptomatic anemia (3) Hyperkalemia (4) Stage 4 chronic kidney disease Plan BP is still elevated off and on. Also started on Diltiazem. Hgb. was stable, got one dose of Epogen. Iron study is normal, and Po4 is also normal. Creatinine is 4.1, with the GFR of 18 ml/min. If BP remain elevated, to increase Hydralazine. Problem Qualifiers (1) Hypertension: Qualified Code: I10 - Hypertension, unspecified type Chuy Jaime MD Mar 05, 2017 14:23
[2017-03-05] MEDS: cloNIDine HCL 0.2 MG TAB PO PRN (16:16)
[2017-03-06] VITALS: BP 156/68; PULSE 61; RESP 16; TEMP 97.9; O2SAT 96
[2017-03-06 04:00] VITALS: BP 142/68; PULSE 59; RESP 18; TEMP 98; O2SAT 97
[2017-03-06] MEDS: hydrALAZINE HCL 25 MG TAB PO SCH ×3 (05:47→20:51)
[2017-03-06] MEDS: cycloSPORINE 25 MG CAP PO SCH ×2 (05:47→17:51)
[2017-03-06] MEDS: INSULIN ASPART SUPPLEMENTAL SCALE SQ SCH ×4 (06:42→20:54)
[2017-03-06 07:01] LABS: AUTOMATED NEUTROPHIL # 10.4 TH/MM3 (1.8-7.7); BASOPHIL % 0.2 % (0.0-2.0); EOSINOPHIL % 0.1 % (0.0-4.0); HEMATOCRIT 28.8 % (39.0-51.0); LYMPH % 6.5 % (9.0-44.0); LYMPHOCYTE # 0.8 TH/MM3 (1.0-4.8); MEAN CELL VOLUME 87.9 FL (80.0-100.0); MEAN CORPUSCULAR HEMOGLOBIN 27.4 PG (27.0-34.0); MEAN CORPUSCULAR HGB CONC 31.1 % (32.0-36.0); MONO % 5.9 % (0.0-8.0); NEUT % 87.3 % (16.0-70.0); PLATELET COUNT 203 TH/MM3 (150-450); RED BLOOD COUNT 3.27 MIL/MM3 (4.50-5.90); RED CELL DISTRIBUTION WIDTH 16.5 % (11.6-17.2); WHITE BLOOD COUNT 11.9 TH/MM3 (4.0-11.0)
[2017-03-06 07:05] LABS: HEMO FLAGS AUTO DIFF
[2017-03-06 07:39] LABS: BICARBONATE 19.9 MEQ/L (21.0-32.0); MAGNESIUM 2.2 MG/DL (1.5-2.5); POTASSIUM 4.6 MEQ/L (3.5-5.1)
[2017-03-06 08:00] VITALS: BP_SYST 149; BP_SYST 160; BP_DIAS 67; BP_DIAS 70; PULSE 41; PULSE 91; RESP 18; RESP 20; TEMP 97.7; TEMP 97.9; O2SAT 97; O2SAT 98
[2017-03-06] MEDS: CALCITRIOL 0.25 MCG CAP PO SCH (08:18)
[2017-03-06] MEDS: FERROUS SULFATE 325 MG (65 MG ELEMENTAL IRON) TAB PO SCH (08:18)
[2017-03-06] MEDS: LOSARTAN 50 MG TAB PO SCH (08:18)
[2017-03-06] MEDS: METOPROLOL TARTRATE 100 MG TAB PO SCH (08:19)
[2017-03-06] MEDS: predniSONE 10 MG TAB PO SCH ×2 (08:19→20:51)
[2017-03-06] MEDS: PRAVASTATIN SOD 20 MG TAB PO SCH (08:19)
[2017-03-06] MEDS: ASPIRIN 81 MG CHEW TAB CHEW SCH (08:19)
[2017-03-06] MEDS: SODIUM CHLORIDE 0.9% FLUSH 10 ML FLUSH IV FLUSH SCH ×2 (08:19→20:56)
[2017-03-06] MEDS: DILTIAZEM-CD 120 MG CAP ER PO SCH (08:19)
[2017-03-06] MEDS: MULTIVITAMIN TAB PO SCH (08:19)
[2017-03-06 09:29] LABS: BANDS 2 % (0-6); CORRECTED NUCLEATED RBC 3 /100 WBC (0-0); METAMYELOCYTES 2 % (0-1); NEUTROPHIL # MANUAL DIFF 10.8 TH/MM3 (1.8-7.7); POLYS (SEG NEUTROPHILS) 87 % (16-70); WBC DIFF SAMPLE 100
[2017-03-06 09:34] LABS: ACANTHOCYTES OCC (NORMAL); PLATELET ESTIMATE SMEAR NORMAL (NORMAL); PLATELET MORPHOLOGY NORMAL (NORMAL); SCAN/DIFF FINAL DIFF MANUAL
[2017-03-06 12:00] VITALS: BP 149/64; PULSE 50; RESP 18; TEMP 97.8; O2SAT 97
--- NOTE | 2017-03-06 13:22 | HHI.NPPN ---
Subjective History of Present Illness 66-year-old male with past medical history of hypertension, diabetes mellitus, chronic anemia, chronic kidney disease, hyperlipidemia who was called to go to the hospital because of very low hemoglobin and hyperkalemia. I was called to see the patient for chronic kidney disease. Additional Remarks Patient is alert, no complain, feeling better, no nausea, no SOB. Review of Systems General Constitutional: Fatigue Cardiovascular Cardiac: CHASE Objective Data Data 03/05/17 03/06/17 19:00 07:00 Intake Total 480 ml Output Total 900 ml 600 ml Balance -420 ml -600 ml Intake Oral 480 ml Output Urine Total 900 ml 600 ml # Bowel Movements 1 Vital Signs Date Time Temp Pulse Resp B/P Pulse Ox O2 Delivery O2 Flow Rate FiO2 03/06/17 12:00 97.8 50 18 149/64 97 03/06/17 08:00 97.9 91 20 160/70 97 03/06/17 04:00 98.0 59 18 142/68 97 03/06/17 04:00 Room Air 03/06/17 00:00 Room Air 03/06/17 00:00 97.9 61 16 156/68 96 03/05/17 20:00 97.9 58 16 172/74 96 03/05/17 20:00 Room Air 03/05/17 18:24 60 146/66 03/05/17 17:00 60 172/74 03/05/17 16:00 97.3 63 18 180/77 100 -: 03/06/17 0615 03/06/17 0615 Physical Exam General Appearance: No Acute Distress, Comfortable Eyes Eye Exam: Pupils Equal Throat Throat Exam: Oral Mucosa [place] & Moist Neck Neck Exam: Neck Supple Pulmonary Resp Exam: Clear Bilaterally, Breath Sounds Equal, No Distress, Decreased Bases Cardiology CV Exam: Regular, Normal Sinus Rhythm Gastrointestinal/Abdomen GI Exam: Soft, Non-Tender, Bowel Sounds Present Extremeties Extremities Exam: Trace Edema Neurologic Neuro Exam: Alert, Awake, Oriented Psychiatric Psych Exam: Appropriate Responses Assessment/Plan Assessment Summary: Anemia of CKD, Hypertension, CKD Stage IV Electrolyte Assessment: Hyperkalemia Problem List: (1) Hypertension (2) Symptomatic anemia (3) Hyperkalemia (4) Stage 4 chronic kidney disease Plan BP is still elevated off and on. Also started on Diltiazem. Hgb. was stable, got one dose of Epogen. Iron study is normal, and Po4 is also normal. Creatinine increase slightly, and GFR now is 16 ml/min. Not uremic, he would like PD. For possible D/C now, BP is better. I can follow him in 2-3 weeks. Problem Qualifiers (1) Hypertension: Qualified Code: I10 - Hypertension, unspecified type Chuy Jaime MD Mar 06, 2017 13:22
[2017-03-06 16:00] VITALS: BP 149/67; PULSE 41; RESP 20; TEMP 97.7; O2SAT 98
--- NOTE | 2017-03-06 17:46 | HHI.PR ---
Subjective Remarks Pt frustrated by need for continued hospitalization. Objective Vitals Vital Signs Date Time Temp Pulse Resp B/P Pulse Ox O2 Delivery O2 Flow Rate FiO2 03/06/17 12:00 97.8 50 18 149/64 97 03/06/17 08:00 97.9 91 20 160/70 97 03/06/17 08:00 97.7 41 18 149/67 98 03/06/17 04:00 98.0 59 18 142/68 97 03/06/17 04:00 Room Air 03/06/17 00:00 Room Air 03/06/17 00:00 97.9 61 16 156/68 96 03/05/17 20:00 97.9 58 16 172/74 96 03/05/17 20:00 Room Air 03/05/17 18:24 60 146/66 03/05/17 03/05/17 03/06/17 15:00 23:00 07:00 Intake Total 480 ml Output Total 900 ml 200 ml 400 ml Balance -420 ml -200 ml -400 ml Intake Oral 480 ml Output Urine Total 900 ml 200 ml 400 ml # Bowel Movements 1 Result Diagram: 03/06/17 0615 03/06/17 0615 Imaging Last 24 hours Impressions Chest X-Ray 03/02/17 1248 Signed Impressions: Service Date/Time: Thursday, March 02, 2017 12:57 - CONCLUSION: No acute disease. Rick Pinto MD Objective Remarks GENERAL: This is a well-nourished, well-developed patient, in no apparent distress. CARDIOVASCULAR: regular, [place] RESPIRATORY: Clear to auscultation. Breath sounds equal bilaterally. No wheezes , rales, or rhonchi. GASTROINTESTINAL: Abdomen soft, non-tender, nondistended. Normal active bowel sounds MUSCULOSKELETAL: Extremities without clubbing, cyanosis, or edema. NEURO: Alert & Oriented x4 to person, place, time, situation. Moves all ext x4 A/P Problem List: (1) Hypertension Status: Chronic Plan: - today BP contol is much improved, but now bradycardic with HR in the 40s - resume telemetry - hydralazine to 50mg TID (increased 03/04/17), may need to increase to 75mg, observe - STOP cardizem - cozaar - lopressor 100mg with parameters to hold if HR below 70, consider decreasing dose - hydralazine prn - observe (2) Renal failure Status: Acute Plan: - comgmt with Nephrology, Dr. Jaime - Case d/w Dr. Jaime (03/05/17) - kidney biopsy showed focal segmental glomerulosclerosis - pt receiving cyclosporin and prednisone with minimal improvement to date - decrease dose adjustments of pt's cyclosporin and prednisone per Nephrology (3) Symptomatic anemia Status: Acute Plan: - d/t RF - Pt received transfusion of 2 units PRBCs - Hg 7.0 (03/02/17), 8.2 (03/03/17), 8.8 (03/04/17) , 9.0 (03/06/17) - Epogen (03/02/17) - repeat CBC in AM (4) Adjustment disorder Status: Acute Plan: - case d/w nursing - encourage OOB and ambulate in the hallways - may need to start anti-depressant - observe (5) DM2 (diabetes mellitus, type 2) Status: Chronic Plan: - exacerbated by prednisone - resume glipizide - start levemir 10 units bid - continue SSI - Problem Qualifiers (1) Hypertension: Qualified Code: I10 - Hypertension, unspecified type (2) Renal failure: Qualified Code: N17.9 - Acute renal failure superimposed on stage 5 chronic kidney disease, not on chronic dialysis, unspecified acute renal failure type (3) DM2 (diabetes mellitus, type 2): Qualified Code: E11.8 - Type 2 diabetes mellitus with complication, without long-term current use of insulin Robson Burns DO Mar 06, 2017 17:45
[2017-03-06] MEDS: glipiZIDE 10 MG TAB PO SCH (18:08)
[2017-03-06 20:00] VITALS: BP 148/56; PULSE 52; RESP 18; TEMP 97.7; O2SAT 97
[2017-03-06] MEDS: INSULIN DETEMIR 100 UNITS/ML VIAL SQ SCH (20:53)
[2017-03-07] VITALS: BP 136/70; PULSE 61; RESP 18; TEMP 98.2; O2SAT 98
[2017-03-07 01:14] VITALS: PULSE 65
[2017-03-07 04:00] VITALS: BP 154/66; PULSE 67; RESP 18; TEMP 98.7; O2SAT 98
[2017-03-07] MEDS: glipiZIDE 10 MG TAB PO SCH (06:00)
[2017-03-07] MEDS: hydrALAZINE HCL 25 MG TAB PO SCH (06:00)
[2017-03-07] MEDS: cycloSPORINE 25 MG CAP PO SCH (06:00)
[2017-03-07] MEDS: INSULIN ASPART SUPPLEMENTAL SCALE SQ SCH ×2 (06:02→11:00)
[2017-03-07 07:02] LABS: AUTOMATED NEUTROPHIL # 11.6 TH/MM3 (1.8-7.7); BASOPHIL % 0.2 % (0.0-2.0); LYMPH % 5.2 % (9.0-44.0); LYMPHOCYTE # 0.7 TH/MM3 (1.0-4.8); MEAN CELL VOLUME 88.9 FL (80.0-100.0); MEAN CORPUSCULAR HEMOGLOBIN 28.2 PG (27.0-34.0); MEAN CORPUSCULAR HGB CONC 31.7 % (32.0-36.0); MONO % 6.7 % (0.0-8.0); NEUT % 87.9 % (16.0-70.0); PLATELET COUNT 195 TH/MM3 (150-450); RED BLOOD COUNT 3.15 MIL/MM3 (4.50-5.90); RED CELL DISTRIBUTION WIDTH 16.3 % (11.6-17.2); WHITE BLOOD COUNT 13.2 TH/MM3 (4.0-11.0)
[2017-03-07 07:07] LABS: HEMO FLAGS AUTO DIFF
[2017-03-07 07:39] LABS: BICARBONATE 20.2 MEQ/L (21.0-32.0); MAGNESIUM 2.3 MG/DL (1.5-2.5); POTASSIUM 4.7 MEQ/L (3.5-5.1)
[2017-03-07 08:00] VITALS: BP 174/78; PULSE 58; PULSE 72; RESP 18; TEMP 98.3; O2SAT 98
[2017-03-07] MEDS: ASPIRIN 81 MG CHEW TAB CHEW SCH (08:08)
[2017-03-07] MEDS: LOSARTAN 50 MG TAB PO SCH (08:08)
[2017-03-07] MEDS: METOPROLOL TARTRATE 100 MG TAB PO SCH (08:09)
[2017-03-07] MEDS: FERROUS SULFATE 325 MG (65 MG ELEMENTAL IRON) TAB PO SCH (08:09)
[2017-03-07] MEDS: MULTIVITAMIN TAB PO SCH (08:09)
[2017-03-07] MEDS: PRAVASTATIN SOD 20 MG TAB PO SCH (08:09)
[2017-03-07] MEDS: predniSONE 10 MG TAB PO SCH (08:09)
[2017-03-07] MEDS: CALCITRIOL 0.25 MCG CAP PO SCH (08:09)
[2017-03-07] MEDS: INSULIN DETEMIR 100 UNITS/ML VIAL SQ SCH (08:11)
[2017-03-07 08:42] LABS: BANDS 3 % (0-6); CORRECTED NUCLEATED RBC 1 /100 WBC (0-0); NEUTROPHIL # MANUAL DIFF 11.7 TH/MM3 (1.8-7.7); POLYS (SEG NEUTROPHILS) 86 % (16-70); WBC DIFF SAMPLE 100
[2017-03-07 08:43] LABS: PLATELET ESTIMATE SMEAR NORMAL (NORMAL); PLATELET MORPHOLOGY NORMAL (NORMAL); SCAN/DIFF FINAL DIFF MANUAL
[2017-03-07] MEDS: SODIUM CHLORIDE 0.9% FLUSH 10 ML FLUSH IV FLUSH SCH (09:05)
--- NOTE | 2017-03-07 10:41 | HHI.NPPN ---
Subjective History of Present Illness 66-year-old male with past medical history of hypertension, diabetes mellitus, chronic anemia, chronic kidney disease, hyperlipidemia who was called to go to the hospital because of very low hemoglobin and hyperkalemia. I was called to see the patient for chronic kidney disease. Additional Remarks Patient is alert, seen in AM , doing good, no complain. Review of Systems General Constitutional: Fatigue Cardiovascular Cardiac: CHASE Objective Data Data 03/06/17 03/07/17 19:00 07:00 Intake Total 960 ml 360 ml Output Total 900 ml Balance 960 ml -540 ml Intake Oral 960 ml 360 ml Output Urine Total 900 ml # Voids 3 # Bowel Movements 1 1 Vital Signs Date Time Temp Pulse Resp B/P Pulse Ox O2 Delivery O2 Flow Rate FiO2 03/07/17 08:15 Room Air 03/07/17 08:00 98.3 72 18 174/78 98 Manual Cuff/Auscultation Automatic Cuff 03/07/17 04:32 Room Air 03/07/17 04:00 98.7 67 18 154/66 98 03/07/17 01:14 65 03/07/17 00:00 98.2 61 18 136/70 98 03/07/17 00:00 Room Air 03/06/17 20:00 Room Air 03/06/17 20:00 97.7 52 18 148/56 97 03/06/17 16:00 97.7 41 20 149/67 98 03/06/17 12:00 97.8 50 18 149/64 97 -: 03/07/17 0630 03/07/17 0630 Physical Exam General Appearance: No Acute Distress, Comfortable Eyes Eye Exam: Pupils Equal Throat Throat Exam: Oral Mucosa [place] & Moist Neck Neck Exam: Neck Supple Pulmonary Resp Exam: Clear Bilaterally, Breath Sounds Equal, No Distress, Decreased Bases Cardiology CV Exam: Regular, Normal Sinus Rhythm Gastrointestinal/Abdomen GI Exam: Soft, Non-Tender, Bowel Sounds Present Extremeties Extremities Exam: Trace Edema Neurologic Neuro Exam: Alert, Awake, Oriented Psychiatric Psych Exam: Appropriate Responses Assessment/Plan Assessment Summary: Anemia of CKD, Hypertension, CKD Stage IV Electrolyte Assessment: Hyperkalemia Problem List: (1) Hypertension (2) Symptomatic anemia (3) Hyperkalemia (4) Stage 4 chronic kidney disease Plan BP is still elevated off and on. Also started on Diltiazem. Hgb. was stable, got one dose of Epogen. Iron study is normal, and Po4 is also normal. Not uremic, he would like PD. HR decreased yest. now stable. BP is better. For D/C today, follow up with me in 2-3 weeks. Problem Qualifiers (1) Hypertension: Qualified Code: I10 - Hypertension, unspecified type Chuy Jaime MD Mar 07, 2017 10:41
[2017-03-07] MEDS ORDERED: NIFE30TA61 PO (10:42)
[2017-03-07] MEDS ORDERED: SAND25 PO (10:42)
[2017-03-07] MEDS ORDERED: PRED10 PO (10:42)
--- NOTE | 2017-03-07 10:43 | HHI.DCPOC ---
Discharge Care Plan Diagnosis: (1) Renal failure (2) Symptomatic anemia (3) Hypertension (4) DM2 (diabetes mellitus, type 2) Goals to Promote Your Health * To prevent worsening of your condition and complications * To maintain your health at the optimal level Directions to Meet Your Goals Take your medications as prescribed Follow your dietary instruction Follow activity as directed Keep your appointments as scheduled Take your immunizations and boosters as scheduled If your symptoms worsen call your PCP, if no PCP go to Urgent Care Center or Emergency Room Smoking is Dangerous to Your Health. Avoid second hand smoke Call the 24-hour hour crisis hotline for domestic abuse at Mino Javier MD Mar 07, 2017 10:43
--- NOTE | 2017-03-07 10:47 | HHI.PR ---
Subjective Remarks when I arrived pt demanding to be discharged. Objective Vitals heart reg lung cta abd s/nt ext no edema Vital Signs Date Time Temp Pulse Resp B/P Pulse Ox O2 Delivery O2 Flow Rate FiO2 03/07/17 08:15 Room Air 03/07/17 08:00 98.3 72 18 174/78 98 Manual Cuff/Auscultation Automatic Cuff 03/07/17 04:32 Room Air 03/07/17 04:00 98.7 67 18 154/66 98 03/07/17 01:14 65 03/07/17 00:00 98.2 61 18 136/70 98 03/07/17 00:00 Room Air 03/06/17 20:00 Room Air 03/06/17 20:00 97.7 52 18 148/56 97 03/06/17 16:00 97.7 41 20 149/67 98 03/06/17 12:00 97.8 50 18 149/64 97 03/06/17 03/06/17 03/07/17 15:00 23:00 07:00 Intake Total 960 ml 240 ml 120 ml Output Total 300 ml 600 ml Balance 960 ml -60 ml -480 ml Intake Oral 960 ml 240 ml 120 ml Output Urine Total 300 ml 600 ml # Voids 3 # Bowel Movements 1 1 0 Result Diagram: 03/07/17 0630 03/07/17 0630 Imaging Last 24 hours Impressions Chest X-Ray 03/02/17 1248 Signed Impressions: Service Date/Time: Thursday, March 02, 2017 12:57 - CONCLUSION: No acute disease. Rick Pinto MD A/P Problem List: (1) Hypertension Status: Chronic Plan: Pt admitted for symptomatic anemia. 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 (2) Renal failure Status: Acute Plan: - comgmt with Nephrology, Dr. Jaime - Case d/w Dr. Jaime (03/05/17) - kidney biopsy showed focal segmental glomerulosclerosis - pt receiving cyclosporin and prednisone with minimal improvement to date - decrease dose adjustments of pt's cyclosporin and prednisone per Nephrology (3) Symptomatic anemia Status: Acute Plan: - d/t RF - Pt received transfusion of 2 units PRBCs - Hg 7.0 (03/02/17), 8.2 (03/03/17), 8.8 (03/04/17) , 9.0 (03/06/17) - Epogen (03/02/17) - repeat CBC in AM (4) Adjustment disorder Status: Acute Plan: - case d/w nursing - encourage OOB and ambulate in the hallways - may need to start anti-depressant - observe (5) DM2 (diabetes mellitus, type 2) Status: Chronic Plan: - exacerbated by prednisone - resume home meds. predisone lowered. Problem Qualifiers (1) Hypertension: Qualified Code: I10 - Hypertension, unspecified type (2) Renal failure: Qualified Code: N17.9 - Acute renal failure superimposed on stage 5 chronic kidney disease, not on chronic dialysis, unspecified acute renal failure type (3) DM2 (diabetes mellitus, type 2): Qualified Code: E11.8 - Type 2 diabetes mellitus with complication, without long-term current use of insulin Mino Javier MD Mar 07, 2017 10:47
[2017-03-07 11:15] VITALS: BP 145/82
== END 2017-03-07 11:36 | disposition home or self-care (01) | DRG 683 ==
LOC: NEPE 10:32 → NEDA 12:31 → N04B 14:45
PROVIDERS: ADMIT Hospitalist; ATTEND Hospitalist
PROC: 30233N1 Transfusion of Nonautologous Red Blood Cells into Peripheral Vein, Percutaneous Approach (ICD-10-PCS; principal; 2017-03-02)
DX: N17.9 Acute kidney failure, unspecified (principal); E87.2 Acidosis; E11.22 Type 2 diabetes mellitus with diabetic chronic kidney disease; D63.1 Anemia in chronic kidney disease; E87.5 Hyperkalemia; E78.5 Hyperlipidemia, unspecified; I12.9 Hypertensive chronic kidney disease with stage 1 through stage 4 chronic kidney disease, or unspecified chronic kidney disease; N18.4 Chronic kidney disease, stage 4 (severe); F43.20 Adjustment disorder, unspecified; Z79.84 Long term (current) use of oral hypoglycemic drugs
CPT/HCPCS: 36430; 71010; 76937; 80048; 82728; 82948; 83540; 83550; 83735; 84100; 84132; 85007; 85025; 85027; 85610; 86850; 86900; 86901; 86920; 93005; J0360; J1815; J7050; J7512; J7515; P9016; Q4081